=== PATIENT | male | born 1945 | race Hispanic/Latino ===

== ENCOUNTER 2017-08-22 07:37 | Day surgery (SDC) | payer OTHER ==
[~2017-08-22] VITALS: Ht 175.3 cm; Wt 89.8 kg
[~2017-08-22 07:37] MED LIST: SODIUM CHLORIDE 0.9% 1000ML 1,000 ML IV ONE
[2017-08-22 08:13] VITALS: BP 156/78
[2017-08-22] MEDS ORDERED: METO25TA6 PO (08:22)
[2017-08-22] MEDS ORDERED: PROPOFOL 10 MG/ML 20ML VIAL IV ONE (09:03)
[2017-08-22] MEDS ORDERED: FENTANYL CITRATE PF 50 MCG/1 ML 2ML VIAL ONE (09:05)
[2017-08-22 09:22] VITALS: BP 95/50
== END 2017-08-22 12:00 | disposition home or self-care (01) ==
LOC: DAH 07:37
PROVIDERS: ATTEND Internal Medicine Gastroenterology
DX: Z12.11 Encounter for screening for malignant neoplasm of colon (principal); Z98.890 Other specified postprocedural states; Z79.899 Other long term (current) drug therapy; K57.30 Diverticulosis of large intestine without perforation or abscess without bleeding; Z68.38 Body mass index [BMI] 38.0-38.9, adult
CPT/HCPCS: A4606; G0121; J2704; J3010; J7030

== ENCOUNTER 2021-05-28 11:20 | Inpatient (IN) | payer OTHER ==
[~2021-05-28] VITALS: Ht 175.3 cm; Wt 90.3 kg
[2021-05-28] VITALS (9 sets, daily range): BP systolic 131–150; BP diastolic 60–76
[~2021-05-28 11:20] MED LIST changes: +METO25TA6 PO; -SODIUM CHLORIDE 0.9% 1000ML 1,000 ML IV ONE
[2021-05-28] MEDS ORDERED: CARB-305 OP (11:32)
[2021-05-28] MEDS ORDERED: CHOL100040 PO (11:43)
[2021-05-28] MEDS ORDERED: HYDR25TA PO (11:43)
[2021-05-28] MEDS ORDERED: LATA7.5D OP (11:43)
[2021-05-28] MEDS ORDERED: CYAN-35 PO (11:43)
[2021-05-28] MEDS ORDERED: FOLI0.8T3 PO (11:43)
[2021-05-28 11:52] LABS: BASOPHILS % (AUTO) 1.3 % (0.0-5.0); EOSINOPHILS % (AUTO) 1.9 % (0.0-8.0); HEMATOCRIT 36.8 % (42-54); LYMPHOCYTES % (AUTO) 28.5 % (21.0-51.0); MEAN CORPUSCULAR HEMOGLOBIN 36.2 pg (27.0-33.0); MEAN CORPUSCULAR HGB CONC 36.4 g/dL (32.0-36.0); MEAN CORPUSCULAR VOLUME 99.5 fL (79-99); MONOCYTES % (AUTO) 25.3 % (3.0-13.0); NEUTROPHILS % (AUTO) 42.7 % (40.0-77.0); PLATELET COUNT (AUTO) 57 K/uL (130-400); WHITE BLOOD COUNT (AUTO) 3.2 K/uL (4.8-10.8)
[2021-05-28 12:07] LABS: B-TYPE NATRIURETIC PEPTIDE 1470 pg/mL (0-100)
[2021-05-28 12:09] LABS: ALBUMIN 3.2 g/dL (3.5-5.0); BILIRUBIN,TOTAL 3.3 mg/dL (0.2-1.0); CREATININE 0.9 mg/dL (0.5-1.5); MAGNESIUM 2.1 mg/dL (1.80-2.40); POTASSIUM 3.4 mmol/L (3.5-5.1); TOTAL PROTEIN, SERUM 7.5 g/dL (6.0-8.3)
[2021-05-28 12:30] LABS: APPEARANCE,URINE Clear (CLEAR); BILIRUBIN,URINE Negative (NEGATIVE); COLOR,URINE Yellow (YELLOW); GLUCOSE, URINE (UA) Negative (NEGATIVE); KETONES,URINE Negative (NEGATIVE); LEUKOCYTE ESTERASE ,URINE Negative (NEGATIVE); NITRATE,URINE Negative (NEGATIVE); OCCULT BLOOD,URINE Negative (NEGATIVE); PH,URINE 7.5 (5.0-8.0); PROTEIN,URINE Negative (NEGATIVE)
[2021-05-28 12:31] LABS: PLATELET MORPHOLOGY COMMENT DECREASED
[2021-05-28 12:41] LABS: INR 1.29 (0.85-1.15); PROTHROMBIN TIME 13.7 SEC (9.6-11.6)
[2021-05-28] MEDS ORDERED: LIDOCAINE HCL-MPF 1% 2ML VIAL IV PRN (13:30)
[2021-05-28] MEDS ORDERED: POTASSIUM CHLORIDE 10MEQ/100ML 100 ML IV PRN (13:30)
[2021-05-28] MEDS ORDERED: LACTULOSE 20 GM/30 ML UDCUP PO PRN (15:00)
[2021-05-28] MEDS ORDERED: GUAIFENESIN-DM 200/20 MG 10 ML PO PRN (15:00)
[2021-05-28] MEDS ORDERED: ONDANSETRON 4MG INJ IV PRN ×2 (15:00→20:30)
[2021-05-28] MEDS ORDERED: ACETAMINOPHEN 325 MG TAB PO PRN (15:00)
[2021-05-28] MEDS ORDERED: ACETAMINOPHEN WITH CODEINE 1 TAB TAB PO PRN ×3 (15:00→20:30)
[2021-05-28] MEDS ORDERED: MAG/ALUM/SIMETH 30 ML UDCUP PO PRN (15:00)
[2021-05-28] MEDS: FUROSEMIDE 20MG VIAL IV SCH (15:14)
[2021-05-28] MEDS ORDERED: IPRATROPIUM/ALBUTEROL SULFATE 3 ML SOLUTION IH PRN (16:00)
[2021-05-28] MEDS ORDERED: LIDOCAINE HCL 1% MDV 50ML VIAL ONE (18:21)
[2021-05-28] MEDS ORDERED: BUPIVACAINE/PF 0.25% 30ML VIAL IJ ONE (18:21)
[2021-05-28] MEDS ORDERED: CEFAZOLIN SODIUM 1 GM VIAL ONE (18:21)
[2021-05-28] MEDS ORDERED: MIDAZOLAM HCL 1 MG/ML 2ML VIAL ONE (18:43)
[2021-05-28] MEDS ORDERED: FENTANYL CITRATE PF 50 MCG/1 ML 2ML VIAL ONE (18:43)
[2021-05-28] MEDS ORDERED: IODIXANOL 320 MG/ML 100 ML VIAL ONE (18:44)
[2021-05-28] MEDS ORDERED: TEMAZEPAM 30 MG CAP PO PRN (20:30)
[2021-05-28] MEDS: FAMOTIDINE 20MG TAB PO SCH (22:19)
[2021-05-28] MEDS: ACETAMINOPHEN WITH CODEINE 1 TAB TAB PO PRN (22:19)
[2021-05-29] VITALS (7 sets, daily range): BP systolic 107–131; BP diastolic 51–76
[2021-05-29] MEDS: FUROSEMIDE 20MG VIAL IV SCH ×2 (01:32→13:39)
[2021-05-29] MEDS: ACETAMINOPHEN WITH CODEINE 1 TAB TAB PO PRN ×3 (04:27→20:14)
[2021-05-29 05:06] LABS: ALBUMIN 2.7 g/dL (3.5-5.0); BILIRUBIN,DIRECT 1.4 mg/dL (0.0-0.3); BILIRUBIN,TOTAL 3.3 mg/dL (0.2-1.0); TOTAL PROTEIN, SERUM 6.4 g/dL (6.0-8.3)
[2021-05-29] MEDS: FAMOTIDINE 20MG TAB PO SCH ×2 (07:16→20:13)
[2021-05-30] VITALS: BP 134/66
[2021-05-30] MEDS: FUROSEMIDE 20MG VIAL IV SCH (02:50)
[2021-05-30 04:00] VITALS: BP 129/67
[2021-05-30] MEDS: FAMOTIDINE 20MG TAB PO SCH (07:37)
[2021-05-30 08:56] VITALS: BP 139/66
[2021-05-30] MEDS: ACETAMINOPHEN WITH CODEINE 1 TAB TAB PO PRN (10:45)
[2021-07-26] MEDS ORDERED: IRON PO (14:22)
[2021-07-26] MEDS ORDERED: AEC81 PO (14:22)
[2021-07-26] MEDS ORDERED: FOLI1 PO (14:22)
[2021-07-26] MEDS ORDERED: CARB-305 OP (14:22)
[2021-07-26] MEDS ORDERED: VITA-395 PO (14:22)
== END 2021-05-30 12:30 | disposition home or self-care (01) | DRG 242 ==
LOC: EDH 11:20 → EDHIP 13:10 → 4DH 17:59
PROVIDERS: ADMIT Internal Medicine; ATTEND Internal Medicine
PROC: 0JH606Z Insertion of Pacemaker, Dual Chamber into Chest Subcutaneous Tissue and Fascia, Open Approach (ICD-10-PCS; principal; 2021-05-28)
PROC: 02H63JZ Insertion of Pacemaker Lead into Right Atrium, Percutaneous Approach (ICD-10-PCS; 2021-05-28)
PROC: 02HK3JZ Insertion of Pacemaker Lead into Right Ventricle, Percutaneous Approach (ICD-10-PCS; 2021-05-28)
DX: I44.2 Atrioventricular block, complete (principal); I50.31 Acute diastolic (congestive) heart failure; F10.239 Alcohol dependence with withdrawal, unspecified; I11.0 Hypertensive heart disease with heart failure; E78.5 Hyperlipidemia, unspecified; E87.6 Hypokalemia; Z20.822 Contact with and (suspected) exposure to COVID-19; I10 Essential (primary) hypertension; R49.0 Dysphonia; Z92.3 Personal history of irradiation; Z95.2 Presence of prosthetic heart valve; Z98.49 Cataract extraction status, unspecified eye; Z85.819 Personal history of malignant neoplasm of unspecified site of lip, oral cavity, and pharynx; Z82.3 Family history of stroke; Z83.3 Family history of diabetes mellitus; Z82.0 Family history of epilepsy and other diseases of the nervous system; Z82.49 Family history of ischemic heart disease and other diseases of the circulatory system
CPT/HCPCS: 33208; 33210; 36415; 71045; 71046; 80053; 80076; 81003; 83735; 83880; 84484; 85025; 85610; 85730; 87635; 93005; 93306; 99156; 99157; C1785; G0378; J0690; J1940; J2250; J3010; J3490; Q9967

== ENCOUNTER 2021-07-27 06:36 | Day surgery (SDC) | payer OTHER ==
[2021-07-22 09:51] LABS: EOSINOPHILS % (AUTO) 5.1 % (0.0-8.0); HEMATOCRIT 38.9 % (42-54); LYMPHOCYTES % (AUTO) 23.5 % (21.0-51.0); MEAN CORPUSCULAR HEMOGLOBIN 36.5 pg (27.0-33.0); MEAN CORPUSCULAR VOLUME 101.3 fL (79-99); MONOCYTES % (AUTO) 22.5 % (3.0-13.0); NEUTROPHILS % (AUTO) 47.4 % (40.0-77.0); PLATELET COUNT (AUTO) 102 K/uL (130-400); RED BLOOD CELL COUNT(AUTO) 3.84 MIL/uL (4.50-6.20); RED CELL DISTRIBUTION WIDTH 13.2 % (11.0-15.5); WHITE BLOOD COUNT (AUTO) 3.9 K/uL (4.8-10.8)
[2021-07-22 09:59] LABS: CREATININE 0.7 mg/dL (0.5-1.5)
[2021-07-26 10:32] VITALS: BP 157/86
[2021-07-27] VITALS (17 sets, daily range): BP systolic 110–155; BP diastolic 55–85
[~2021-07-27] VITALS: Ht 175.3 cm; Wt 86.4 kg
[~2021-07-27 06:36] MED LIST changes: +AEC81 PO; +CARB-305 OP; +CYAN-35 PO; +FOLI1 PO; +HYDR25TA PO; +IRON PO; +LATA7.5D OP; +VITA-395 PO
[2021-07-27] MEDS ORDERED: LACTATED RINGERS 1000ML 1,000 ML IV ONE (07:04)
[2021-07-27] MEDS ORDERED: EPINEPHRINE 1 MG/ML 30ML VIAL IJ ONE (07:10)
[2021-07-27] MEDS ORDERED: SUCCINYLCHOLINE 200MG/10ML SYR ONE (07:32)
[2021-07-27] MEDS ORDERED: LIDOCAINE PF 100MG/5ML (2%) SYRINGE 5ML ONE (07:32)
[2021-07-27] MEDS ORDERED: PROPOFOL 10 MG/ML 20ML VIAL IV ONE (07:32)
[2021-07-27] MEDS ORDERED: MIDAZOLAM HCL 1 MG/ML 2ML VIAL ONE (07:32)
[2021-07-27] MEDS ORDERED: ROCURONIUM 10MG/1ML SYR 10 MG/ML ML ONE (07:33)
[2021-07-27] MEDS ORDERED: FENTANYL CITRATE PF 50 MCG/1 ML 2ML VIAL ONE (07:33)
[2021-07-27] MEDS ORDERED: NEOSTIGMINE 5MG/5ML SYR IV ONE (07:55)
[2021-07-27] MEDS ORDERED: GLYCOPYRROLATE 1 MG/5 ML SYRINGE ONE (07:55)
== END 2021-07-27 10:00 | disposition home or self-care (01) ==
LOC: DAH 06:36
PROVIDERS: ATTEND Otolaryngology Plastic Surgery within the Head & Neck
DX: R49.0 Dysphonia (principal); Z20.822 Contact with and (suspected) exposure to COVID-19; R23.4 Changes in skin texture; I10 Essential (primary) hypertension; E11.9 Type 2 diabetes mellitus without complications; Z98.890 Other specified postprocedural states; Z85.850 Personal history of malignant neoplasm of thyroid; Z92.3 Personal history of irradiation; Z85.21 Personal history of malignant neoplasm of larynx
CPT/HCPCS: 31535; 36415; 80048; 85025; 87635; A4215; A4216; A4221; A4222; A4223; A4663; A6260; C9803; J0171; J0330; J2001; J2250; J2704; J2710; J3010; J3490; J7120

== ENCOUNTER 2022-10-19 21:21 | Emergency (ER) | payer OTHER ==
[~2022-10-19] VITALS: Ht 170.2 cm; Wt 94.3 kg
[2022-10-19] MEDS ORDERED: ETOMIDATE 20MG VIAL IVP ONE (21:22)
[2022-10-19] MEDS ORDERED: ROCURONIUM BROMIDE 10MG/1ML 5ML VL IV ONE (21:22)
[2022-10-19] MEDS ORDERED: LACTULOSE 20 GM/30 ML UDCUP PO ONE (22:30)
[2022-10-19 22:33] LABS: BASOPHILS % (AUTO) 0.9 % (0.0-5.0); EOSINOPHILS % (AUTO) 1.5 % (0.0-8.0); HEMATOCRIT 40.7 % (42-54); LYMPHOCYTES % (AUTO) 20.1 % (21.0-51.0); MEAN CORPUSCULAR HEMOGLOBIN 33.7 pg (27.0-33.0); MEAN CORPUSCULAR HGB CONC 35.1 g/dL (32.0-36.0); MONOCYTES % (AUTO) 14.3 % (3.0-13.0); NEUTROPHILS % (AUTO) 62.8 % (40.0-77.0); PLATELET COUNT (AUTO) 79 K/uL (130-400); RED BLOOD CELL COUNT(AUTO) 4.24 MIL/uL (4.50-6.20); RED CELL DISTRIBUTION WIDTH 13.7 % (11.0-15.5); WHITE BLOOD COUNT (AUTO) 4.7 K/uL (4.8-10.8)
[2022-10-19 22:51] LABS: CREATININE 1.1 mg/dL (0.5-1.5)
[2022-10-19 22:55] LABS: ALBUMIN 3.9 g/dL (3.5-5.0); TOTAL PROTEIN, SERUM 8.6 g/dL (6.0-8.3)
[2022-10-19 23:04] LABS: APPEARANCE,URINE CLEAR (CLEAR); BILIRUBIN,URINE NEGATIVE (NEGATIVE); COLOR,URINE YELLOW (YELLOW); GLUCOSE, URINE (UA) NEGATIVE (NEGATIVE); KETONES,URINE NEGATIVE (NEGATIVE); LEUKOCYTE ESTERASE ,URINE NEGATIVE Leu/uL (NEGATIVE); NITRATE,URINE NEGATIVE (NEGATIVE); OCCULT BLOOD,URINE SMALL (NEGATIVE); PH,URINE 6.5 (5.0-8.0); PROTEIN,URINE NEGATIVE (NEGATIVE); UROBILINOGEN,URINE 0.2 mg/dL (0.2-1.0)
[2022-10-19 23:08] LABS: MUCUS,URINE RARE LPF (None Seen); SQUAMOUS EPITHELIAL CELL,UR RARE /HPF (0-2); WBC,URINE 0-1 /HPF (0-1)
[2022-10-19 23:29] LABS: AMPHET/METH SCREEN,URINE NEGATIVE (NEGATIVE); BARBITURATE SCREEN, URINE NEGATIVE (NEGATIVE); BENZODIAZEPINES SCREEN,URINE NEGATIVE (NEGATIVE); CANNABINOID SCREEN,URINE POSITIVE (NEGATIVE); COCAINE SCREEN,URINE NEGATIVE (NEGATIVE); OPIATE SCREEN,URINE NEGATIVE (NEGATIVE); PHENCYCLIDINE SCREEN,URINE NEGATIVE (NEGATIVE)
[2022-10-19] MEDS ORDERED: DIAZEPAM 5 MG/ML 2 ML SYG IVP ONE (23:30)
[2022-10-20] MEDS ORDERED: LEVETIRACETAM 500 MG/5 ML SD VIAL IV SCH
[2022-10-20] MEDS ORDERED: LEVETIRACETAM 500 MG/5 ML SD VIAL IV ONE
[2022-10-20] MEDS ORDERED: PROPOFOL 1000 MG/100 ML 100 ML IV ONE (01:09)
[2022-10-20] MEDS ORDERED: FENTANYL 2500MCG+NS 250ML 250 ML IV ONE (01:09)
[2022-10-20] MEDS ORDERED: FENTANYL 2500MCG+NS 250ML IV.SOLN IV SCH (01:30)
[2022-10-20] MEDS ORDERED: PROPOFOL 1000 MG/100 ML 100 ML IV SCH (01:30)
[2022-10-20 02:08] LABS: ABG BASE EXCESS 1.5 mmol/L (-2.0-3.0); ABG HCO3 24.3 mmol/L (21.0-28.0); ABG OXYGEN SATURATION 98.9 % (95.0-99.0); ABG PCO2 33 mmHg (35-48)
[2022-10-20 02:43] VITALS: BP 103/51
== END 2022-10-20 03:47 | disposition short-term general hospital (02) ==
LOC: EDH 21:21
DX: S06.2XAA Diffuse traumatic brain injury with loss of consciousness status unknown, initial encounter (principal); R56.9 Unspecified convulsions; I10 Essential (primary) hypertension; Z79.82 Long term (current) use of aspirin; Z79.899 Other long term (current) drug therapy; Z20.822 Contact with and (suspected) exposure to COVID-19; X58.XXXA Exposure to other specified factors, initial encounter; Y93.89 Activity, other specified; Y92.89 Other specified places as the place of occurrence of the external cause; Y99.8 Other external cause status
CPT/HCPCS: 84484; 80053; 82803; 80305; 82140; 83690; 85025; 83605; 81001; 36415; 87635; 71045 ×2; 70450; 96374; 99291; 93005; 84145; 96375; 94002; 31500; 36600; C9803; J3490 ×2; J3360; J3010; J1953; J2704; A9900

== ENCOUNTER 2025-04-09 08:03 | Day surgery (SDC) | payer OTHER ==
[2025-04-09] VITALS (11 sets, daily range): BP systolic 90–131; BP diastolic 52–77; PULSE 60–68; RESP 12–16; TEMP 96.9–98.2
[~2025-04-09] VITALS: Ht 175.3 cm; Wt 85.3 kg
[~2025-04-09 08:03] MED LIST changes: +AMLO-258 PO; +CYAN-37 PO; +FURO20TA4 PO; +GABA-1405 PO; +LACT-451 PO; +LEVE750T10 PO; +NALT50TA6 PO; +SPIR50TA PO; +THIA100T91 PO
[2025-04-09] MEDS ORDERED: MELA3CAP2 PO (08:31)
[2025-04-09] MEDS ORDERED: LINZESS PO (08:31)
[2025-04-09] MEDS ORDERED: PIPE3.3712 IV (08:31)
[2025-04-09] MEDS ORDERED: RIFA550T PO (08:31)
[2025-04-09] MEDS ORDERED: TAMS-55 PO (08:31)
[2025-04-09] MEDS ORDERED: CHOL100046 PO (08:31)
[2025-04-09] MEDS ORDERED: FLUT1BLS8 IH (08:31)
[2025-04-09] MEDS ORDERED: TIOT18CA3 IH (08:31)
[2025-04-09] MEDS ORDERED: PANT40TA55 PO (08:31)
[2025-04-09] MEDS: 0.9%NACL 1000ML 1,000 ML IV ONE (08:43)
== END 2025-04-09 10:40 | disposition home or self-care (01) ==
LOC: ENDO 08:03 → DAH 08:03 → ENDO 10:40
PROVIDERS: ATTEND Internal Medicine Gastroenterology
DX: K74.60 Unspecified cirrhosis of liver (principal); K22.89 Other specified disease of esophagus; K76.6 Portal hypertension; K31.89 Other diseases of stomach and duodenum; K29.70 Gastritis, unspecified, without bleeding; K57.10 Diverticulosis of small intestine without perforation or abscess without bleeding; I10 Essential (primary) hypertension; M19.90 Unspecified osteoarthritis, unspecified site; K76.82 Hepatic encephalopathy; K59.04 Chronic idiopathic constipation; K64.0 First degree hemorrhoids; N39.0 Urinary tract infection, site not specified; K57.30 Diverticulosis of large intestine without perforation or abscess without bleeding; I38 Endocarditis, valve unspecified; Z85.818 Personal history of malignant neoplasm of other sites of lip, oral cavity, and pharynx; Z98.49 Cataract extraction status, unspecified eye; Z95.0 Presence of cardiac pacemaker; Z79.82 Long term (current) use of aspirin; Z79.899 Other long term (current) drug therapy
CPT/HCPCS: 43239; J7030; J2704; A4620; A4215; J3490